=== PATIENT | male | born 1975 | race African-American/Black ===

== ENCOUNTER 2019-04-24 19:54 | Emergency (ER) | payer OTHER ==
[~2019-04-24] VITALS: Ht 188 cm; Wt 113.5 kg
[2019-04-25] MEDS ORDERED: GLIPIZIDE 5MG TABLET PO SCH (02:45)
[2019-04-25 03:10] LABS: HEMATOCRIT 41.8 % (42.0-52.0); HEMOGLOBIN 14.8 g/dL (14.0-18.0); MEAN CORPUSCULAR HEMOGLOBIN 31.6 pg (28.0-32.0); MEAN CORPUSCULAR VOLUME 89.4 fL (80.0-94.0); PLATELET 191 x1000/uL (130-400); RED BLOOD CELL COUNT 4.68 mill/uL (4.7-6.1)
[2019-04-25 03:18] LABS: CHLORIDE 103 mEq/L (98-107)
[2019-04-25 03:25] LABS: BETA HYDROXYBUTYRATE 0.4 mMol/L (0.0-0.3)
[2019-04-25 03:42] VITALS: BP 120/77
== END 2019-04-25 03:43 | disposition home or self-care (01) ==
LOC: ER 19:54
DX: E11.65 Type 2 diabetes mellitus with hyperglycemia (principal); Z88.0 Allergy status to penicillin; Z79.4 Long term (current) use of insulin
CPT/HCPCS: 36415; 80053; 82010; 82962; 85027; 99283